=== PATIENT | female | born 1995 | race Caucasian/White ===

== ENCOUNTER 2016-06-22 00:37 | Emergency (ER) | payer MEDICAID ==
[2016-06-22 00:51] VITALS: BP 157/77
== END 2016-06-22 01:30 | disposition left against medical advice (07) ==
LOC: ER 00:37
DX: Z53.9 Procedure and treatment not carried out, unspecified reason (principal)

== ENCOUNTER 2016-06-25 13:06 | Outpatient (CLI) | payer MEDICAID ==
[2016-06-25 13:58] LABS: ABSOLUTE LYMPHOCYTES (AUTO) 2.1 10^3/uL (0.5-4.7); ABSOLUTE MONOCYTES (AUTO) 0.8 10^3/uL (0.1-1.4); ABSOLUTE NEUT (AUTO) 8.4 10^3/uL (1.7-8.2); BASOPHILS % (AUTO) 0.2 % (0-2); EOSINOPHILS % (AUTO) 0.4 % (0-6); HEMATOCRIT 32.5 % (36.0-47.0); HEMOGLOBIN 10.6 g/dL (12.0-15.5); HGB HCT DIFFERENCE -0.7; LYMPHOCYTES % (AUTO) 18.5 % (13-45); MEAN CORPUSCULAR HEMOGLOBIN 25.1 pg (27.0-33.4); MEAN CORPUSCULAR HGB CONC 32.7 g/dL (32.0-36.0); MEAN CORPUSCULAR VOLUME 77 fl (80-97); MONOCYTES % (AUTO) 6.9 % (3-13); RED BLOOD COUNT 4.23 10^6/uL (3.72-5.28); RED CELL DISTRIBUTION WIDTH 14.9 % (11.5-14.0); WHITE BLOOD COUNT 11.4 10^3/uL (4.0-10.5)
[2016-06-25 14:01] LABS: APPEARANCE,URINE SLIGHTLY-CLOUDY; BILIRUBIN,URINE NEGATIVE (NEGATIVE); GLUCOSE, URINE NEGATIVE (NEGATIVE); KETONES,URINE 20 mg/dL (NEGATIVE); LEUKOCYTE ESTERASE,URINE SMALL (NEGATIVE); NITRITE,URINE NEGATIVE (NEGATIVE); PROTEIN,URINE NEGATIVE (NEGATIVE); URINE SPECIFIC GRAVITY 1.008; UROBILINOGEN,URINE NEGATIVE mg/dL (<2.0)
--- NOTE | 2016-06-25 14:01 | L&D Flow Sheet ---
LD Flowsheet Datetime Report Generated by CPN: 06/25/2016 14:00 Datetime: 06/25/2016 13:53 Vital Signs NBP Sys/Nicole/Mean (mmHg): 133 (QS system process) : 74 (QS system process) : 97 (QS system process) Pulse: 96 (QS system process) Datetime: 06/25/2016 13:38 Vital Signs NBP Sys/Nicole/Mean (mmHg): 140 (QS system process) : 74 (QS system process) : 100 (QS system process) Pulse: 97 (QS system process) Datetime: 06/25/2016 13:31 Patient Care Comments: Labs drawn (Yecenia Vitrano, RN) Datetime: 06/25/2016 13:23 Vital Signs NBP Sys/Nicole/Mean (mmHg): 136 (QS system process) : 72 (QS system process) : 98 (QS system process) Pulse: 98 (QS system process) Pain Pain Scale: 0 (Yecenia Vitrano, RN) Pain Presence: None/Denies (Yecenia Vitrano, RN) Pain Type: N/A (Yecenia Vitrano, RN) Vaginal Exam Membrane Status: Intact (Yecenia Vitrano, RN) Vaginal Bleeding: None (Yecenia Vitrano, RN) Maternal Assessment Level of Consciousness: Fully Conscious (Yecenia Vitrano, RN) DTR's/Clonus: DTRs 1+; No Clonus (Yecenia Vitrano, RN) Headache: Denies (Yecenia Vitrano, RN) Breath Sounds, Left: Clear and Equal (Yecenia Vitrano, RN) Breath Sounds, Right: Clear and Equal (Yecenia Vitrano, RN) Nausea/Vomiting: Hx of Nausea/Vomiting (Annotations: Hx mild nausea) (Yecenia Vitrano, RN) RUQ Epigastric Pain: Present (Annotations: History of heartburn relieved by antacids) (Yecenia Vitrano, RN) Datetime: 06/25/2016 13:21 Patient Care Patient Position/Activity: Left Tilt; Semi-Fowlers (Yecenia Meneses RN) I/O Interventions: Clear Liquids Given (Yecenia Meneses RN) Teaching Instructional Method: Verbal; Patient Instructed; Family/Support Person Instructed; Verbalized Understanding (Yecenia Meneses RN) Plan of Care: Plan of Care Discussed (Yecenia Meneses RN) Unit Routine: [place] to Room; Call Gutierrez; Bed; Unit Personnel; Monitoring; Safety/Fall Risk Prevention; Bathroom Privileges (Yecenia Meneses RN)
[2016-06-25 14:12] LABS: ALANINE AMINOTRANSFERASE 19 U/L (9-52); ALBUMIN 3.4 g/dL (3.5-5.0); ALKALINE PHOSPHATASE 118 U/L (38-126); ANION GAP 12 (5-19); ASPARTATE AMINO TRANSFERASE 20 U/L (14-36); BILIRUBIN,TOTAL 0.6 mg/dL (0.2-1.3); BLOOD UREA NITROGEN 5 mg/dL (7-20); CALCIUM 10.2 mg/dL (8.4-10.2); CARBON DIOXIDE 24 mmol/L (22-30); CHLORIDE 102 mmol/L (98-107); CREATININE RESULT 0.55 mg/dL (0.52-1.25); GLUCOSE 140 mg/dL (75-110); LDH 397 U/L (313-618); POTASSIUM 3.4 mmol/L (3.6-5.0); SODIUM 137.6 mmol/L (137-145); TOTAL PROTEIN 6.2 g/dL (6.3-8.2); URIC ACID 4.7 mg/dL (2.5-6.2)
[2016-06-25 14:14] LABS: URINE BARBITURATES SCREEN NEGATIVE; URINE METHADONE SCREEN NEGATIVE; URINE OPIATES LOW NEGATIVE; URINE PHENCYCLIDINE SCREEN NEGATIVE
--- NOTE | 2016-06-25 14:36 | Non Stress Test Report ---
Non Stress Test Datetime Report Generated by CPN: 06/25/2016 14:36 DEMOGRAPHIC EGA NST: 34.5 INDICATION Indication for Study: Ordered by Provider MONITORING Monitor Explained: Monitor Explained; Test Explained; Patient Verbalized Understanding Time on Monitor: 06/25/2016 13:22 Time off Monitor: 06/25/2016 14:26 NST Duration: 64 NST INTERVENTIONS NST Interventions: PO Hydration; Reposition Patient Physician Notified NST: CMeghan Alvarado, CNM BABY A: [id number] BABY A Movement : Present Contraction Frequency : Irregular FHR Baseline : 135 Accelerations : 15X15 Decelerations : None Variability : Moderate 6-25bpm NST Review: Meets Criteria for Reactive NST NST Review and Verified By : HUSEYIN Cordon Results: Reactive NST REPORT Report Trigger: Send Report
== END 2016-06-25 14:29 | disposition home or self-care (01) ==
LOC: LC 13:06
PROVIDERS: ATTEND Obstetrics & Gynecology
PROC: 4A1HXCZ Monitoring of Products of Conception, Cardiac Rate, External Approach (ICD-10-PCS; principal; 2016-06-25)
DX: Z34.93 Encounter for supervision of normal pregnancy, unspecified, third trimester (principal); Z36 Encounter for antenatal screening of mother; Z3A.34 34 weeks gestation of pregnancy
CPT/HCPCS: 36415; 59025; 80053; 80307; 81001; 83615; 84550; 85025

== ENCOUNTER 2016-07-02 12:16 | Outpatient (CLI) | payer MEDICAID | END 2016-07-02 13:20 | disposition home or self-care (01) | LOC: LC 12:16 | PROVIDERS: ATTEND Student in an Organized Health Care Education/Training Program | PROC: 4A1HXCZ Monitoring of Products of Conception, Cardiac Rate, External Approach (ICD-10-PCS; principal; 2016-07-02) | DX: Z34.93 Encounter for supervision of normal pregnancy, unspecified, third trimester (principal); Z36 Encounter for antenatal screening of mother; Z3A.35 35 weeks gestation of pregnancy | CPT/HCPCS: 59025 ==